=== PATIENT | male | born 1985 | race Two or more races ===

== ENCOUNTER 2025-03-06 10:18 | Emergency (ER) | payer OTHER ==
[~2025-03-06] VITALS: Ht 167.6 cm; Wt 68.4 kg
--- NOTE | 2025-03-06 11:00 | ED.PDOC ---
History of Present Illness HPI Comments This is a 39 years old male with no significant past medical history presented to the ER with a complaint of intermittent shortness of breath for last 2 weeks, aggravated during lying down and relieved by sitting up also mentioned that he wake up middle of the night for gasping of air. He denied any recent traveling, surgery, leg pain, chest pain, environmental allergy or any respiratory issues before. In the ED his blood pressure was 168/104 and pulse is 75 beats per minute. [place] but was not following with a doctor for last couple of months. He is nonsmoker, social drinker and stopped taking marijuana 6 years back. Chief Complaint: Shortness of Breath Time Seen by MD: 10:49 Allergies: Coded Allergies: NO KNOWN ALLERGIES (Unverified , 03/06/25) Information Source: Patient Mode of Arrival: Ambulatory Severity: Moderate Timing: Hours Duration: Since onset Prehospital treatment: None Past Medical History Past Medical History (Contd): None Surgical History (Other): None Family History Family History: Reviewed,noncontributory to illness, Family hx of Cancer Social History Smoker: Non-Smoker Alcohol: Occasionally Drugs: Denies Drug Use Lives In: Home Constitutional: denies: chills, diaphoresis, fatigue, fever, malaise, sweats, weakness, others EENTM: denies: blurred vision, double vision, ear bleeding, ear discharge, ear drainage, ear pain, ear ringing, eye pain, eye redness, hearing loss, mouth pain, mouth swelling, nasal discharge, nose bleeding, nose congestion, nose pain , photophobia, tearing, throat pain, throat swelling, voice changes, others Respiratory: reports: shortness of breath; denies: cough, hemoptysis, orthopnea, SOB at rest, SOB with excertion, stridor, wheezing, others Cardiovascular: denies: chest pain, dizzy spells, diaphoresis, Dyspnea on exertion, edema, irregular heart beat, left arm pain, lightheadedness, palpitations, PND, syncope, others Gastrointestinal: denies: abdomen distended, abdominal pain, blood streaked bowels, constipated, diarrhea, dysphagia, difficulty swallowing, hematemesis, melena, nausea, poor appetite, poor fluid intake, rectal bleeding, rectal pain, vomiting, others Genitourinary: denies: burning, dysuria, flank pain, frequency, hematuria, incontinence, penile discharge, penile sore, pain, testicle pain, testicle swelling, urgency, others Neurological: denies: dizziness, fainting, headache, left sided numbness, left sided weakness, numbness, paresthesia, pre-existing deficit, right sided numbness, right sided weakness, seizure, speech problems, tingling, tremors, weakness, others Musculoskeletal: denies: back pain, gout, joint pain, joint swelling, muscle pain, muscle stiffness, neck pain, others Integumetry: denies: bruises, change in color, change in hair/nails, dryness, laceration, lesions, lumps, rash, wounds, others Endocrine: denies: excessive hunger, excessive sweating, excessive thirst, excessive urination, flushing, intolerance to cold, intolerance to heat, unex plained weight gain, unexplained weight loss, others Psychiatric: denies: anxiety, bipolar disorder, depression, hopeless, panic disorder, schizophrenia, sleepless, suicidal, others Physical Exam General Appearance: Normal HEENT: Normal ENT Inspection, Pharynx Normal, TMs Normal Neck: Full Range of Motion, Non-Tender, Normal, Normal Inspection Respiratory: Chest Non-Tender, Lungs Clear, No Accessory Muscle Use, No Respiratory Distress, Normal Breath Sounds Cardiovascular: No Edema, No JVD, No Murmur, No Gallop, Normal Peripheral Pulses, Regular Rate/Rhythm Breast Exam: Deferred Gastrointestinal: No Organomegaly, Non Tender, No Pulsatile Mass, Normal Bowel Sounds, Soft Genitalia: Deferred Pelvic: Deferred Rectal: Deferred Extremities: No calf tenderness, Normal capillary refill, Normal inspection, Normal range of motion, Non-tender, No pedal edema Neurologic: NOT DONE Cerebellar Function: NOT DONE Reflexes: NOT DONE Skin: None Peripheral Pulses: 3+ carotid (R), 3+ carotid (L), 3+ femoral (R), 3+ femoral (L), 3+ dorsalis pedis (R), 3+ dorsalis pedis (L), 3+ Radial (R), 3+ Radial (L), 3+ Brachial (R), 3+ Brachial (L) Lymphatic: NOT DONE Was a procedure done? Was a procedure done?: No EKG EKG : Cardiac Rhythm: NSR Differential Dx Considerations may include: Uncontrolled hypertension, CHF, pulmonary edema, bronchitis, pneumonia X-Ray, Labs, Meds, VS Vital Signs Date Time Temp Pulse Resp B/P (MAP) Pulse Ox O2 Delivery O2 Flow Rate FiO2 03/06/25 10:38 72 03/06/25 10:30 99.1 85 18 168/104 98 99.1 Lab Test 03/06/25 11:07 03/06/25 10:35 Range/Units White Blood Count 7.3 4.4-10.8 10^3/uL Red Blood Count 5.79 4.5-5.90 10^6/uL Hemoglobin 16.5 13.5-17.5 g/dL Hematocrit 48.4 41.0-53.0 % Mean Corpuscular Volume 83.7 80.0-100.0 fL Mean Corpuscular Hemoglobin 28.5 28.0-32.0 pg Mean Corpuscular Hemoglobin Concent 34.0 32.0-36.0 g/dL Red Cell Distribution Width 13.7 11.8-14.3 % Platelet Count 286 140-450 10^3/uL Mean Platelet Volume 8.2 6.9-10.8 fL Neutrophils (%) (Auto) 57.4 37.0-80.0 % Lymphocytes (%) (Auto) 34.8 10.0-50.0 % Monocytes (%) (Auto) 6.4 0.0-12.0 % Eosinophils (%) (Auto) 0.8 0.0-7.0 % Basophils (%) (Auto) 0.6 0.0-2.0 % Neutrophils # (Auto) 4.2 1.6-8.6 10 ^3/uL Lymphocytes # (Auto) 2.5 0.4-5.4 10 ^3/uL Monocytes # (Auto) 0.5 0-1.3 10 ^3/uL Eosinophils # (Auto) 0.1 0-0.8 10 ^3/uL Basophils # (Auto) 0 0-0.2 10 ^3/uL Nucleated Red Blood Cells 0.1 % Sodium Level 141 136-145 mmol/L Potassium Level 4.1 3.5-5.1 mmol/L Chloride Level 105 98-107 mmol/L Carbon Dioxide Level 28 20-31 mmol/L Anion Gap 8 5-15 Blood Urea Nitrogen 10 9-23 mg/dL Creatinine 0.97 0.700-1.30 mg/dL Glomerular Filtration Rate Calc 101 >90 mL/min BUN/Creatinine Ratio 10.3 10.0-20.0 Serum Glucose 104 74-106 mg/dL Calcium Level 10.0 8.7-10.4 mg/dL Troponin I High Sensitivity < 3 L </=54 ng/L B-Type Natriuretic Peptide 2.06 0-100 pg/mL Urine Color Pending Urine Clarity Pending Urine pH Pending Urine Specific [place] Pending Urine Protein Pending Urine Ketones Pending Urine Blood Pending Urine Nitrite Pending Urine Bilirubin Pending Urine Urobilinogen Pending Urine Leukocyte Esterase Pending Urine RBC Pending Urine Microscopic WBC Pending Urine Squamous Epithelial Cells Pending Urine Bacteria Pending Urine Glucose Pending Urine Opiates Screen Pending Urine Fentanyl Screen Pending Urine Barbiturates Screen Pending Urine Phencyclidine Screen Pending Urine Amphetamines Screen Pending Urine Benzodiazepines Screen Pending Urine Cocaine Screen Pending Urine Cannabinoids Screen Pending Images Reviewed?: Images reviewed and evaluated by me Time of 1ST Reevaluation: 13:27 Reevaluation 1ST: Improved Patient Education/Counseling: Diagnosis, Treatment Family Education/Counseling: No Family Present SEPSIS Sepsis Screen Date sepsis recognized/suspect: Mar 06, 2025 Time Sepsis recognized/suspect: 1030 Recent Procedure: No Respiratory Rate >20: No Heart Rate >90: No Temp<36 C (96.8 F) or >38.3 C: No SBP <90 or MAP <65 mmHG: No New Acute Mental Status Change: No Is the patient on CPAP, BIPAP,: No Physician Orders Electrocardigram (03/06/25 10:41) Chest Portable (03/06/25 10:49) Drug Screen (03/06/25 10:49) Urinalysis (03/06/25 10:49) Vital Signs Date Time Temp Pulse Resp B/P (MAP) Pulse Ox O2 Delivery O2 Flow Rate FiO2 03/06/25 10:38 72 03/06/25 10:30 99.1 85 18 168/104 98 99.1 Laboratory Tests Test 03/06/25 11:07 White Blood Count 7.3 10^3/uL (4.4-10.8) Departure 1 Departure Time of Disposition: 13:32 Impression: Primary Impression: Uncontrolled hypertension Additional Impression: Shortness of breath Disposition: 01 HOME / SELF CARE / HOMELESS e-Prescriptions Amlodipine Besylate (Amlodipine Besylate) 5 Mg Tab 1 TAB PO DAILY for 30 Days, #30 TAB 2 Refills Prov: VAMSHI BURNS RESIDENT 03/06/25 Discharged With: Self (The patient is stable for discharge) Critical Care Note Critical Care Time?: No Stability Stability form required: VAMSHI Kidd RESIDENT Mar 06, 2025 11:00
--- NOTE | 2025-03-06 11:10 | DVH ---
CHEST RADIOGRAPH Indication: SOB Technique: Single frontal view of the chest was obtained COMPARISON: None FINDINGS: Lines and Tubes: None Lungs: Clear Pleura: No effusion. No pneumothorax. Cardiomediastinal contours: Unremarkable Bones: Unremarkable IMPRESSION: No acute disease.
[2025-03-06 11:33] LABS: Hematocrit 48.4 % (41.0-53.0); Hemoglobin 16.5 g/dL (13.5-17.5); Mean Corpuscular Hemoglobin 28.5 pg (28.0-32.0); Mean Corpuscular Volume 83.7 fL (80.0-100.0); Nucleated Red Blood Cells % 0.1 %
[2025-03-06 11:42] LABS: Chloride 105 mmol/L (98-107); Potassium 4.1 mmol/L (3.5-5.1); Sodium 141 mmol/L (136-145)
[2025-03-06 11:43] LABS: Anion Gap 8 (5-15); Calcium 10.0 mg/dL (8.7-10.4); Carbon Dioxide 28 mmol/L (20-31)
[2025-03-06 11:48] LABS: BUN/Creatinine Ratio 10.3 (10.0-20.0); Blood Urea Nitrogen 10 mg/dL (9-23); Glucose 104 mg/dL (74-106)
[2025-03-06 13:27] VITALS: BP 133/91; PULSE 76; RESP 15; TEMP 98.6; O2SAT 98
[2025-03-06] MEDS ORDERED: AMLO1TAB22 PO (13:31)
[2025-03-06 13:41] LABS: Urine Protein, UAD Negative (Negative)
[2025-03-06 13:51] LABS: Amphetamine Screen, Urine Neg (NEGATIVE); Barbiturate Scree,Urine Neg (NEGATIVE); Benzodiazephine Screen, Urine Neg (NEGATIVE)
[2025-03-06 13:52] LABS: Cannabinoid Screen, Urine Neg (NEGATIVE); Cocaine Screen, Urine Neg (NEGATIVE); Opiate Scree,Urine Neg (NEGATIVE); Phencyclidine Screen, Urine Neg (NEGATIVE)
--- NOTE | 2025-03-08 06:30 | ECG ---
[facility] Test Date: 2025-03-06 Test Time: 10:38:39 Pat Name: ANDREI RAUSCH Department: [facility] ED Patient ID: [id number] Room: Gender: M [employer] Maker: ER : [id number] Requested By: JOAN MORAES Order Number: [id number] Reading MD: Shon Recio Measurements Intervals [place] Rate: 72 P: 73 NC: 148 QRS: 77 QRSD: 79 T: 46 QT: 371 QTc: 406 Interpretive Statements Sinus rhythm Electronically Signed On 03-08-2025 11:18:28 PDT by Shon Recio Please click the below link to view image of tracing.
== END 2025-03-06 13:58 | disposition home or self-care (01) ==
LOC: ER 10:18
DX: R06.02 Shortness of breath (principal); I10 Essential (primary) hypertension; Z79.899 Other long term (current) drug therapy
CPT/HCPCS: 36415; 71045; 80048; 80307; 81001; 83880; 84484; 85025; 93005